=== PATIENT | female | born 1955 | race Caucasian/White ===

== ENCOUNTER → 2017-04-02 | Outpatient (CLI) | payer MEDICARE ==
[~2017-04-02] MED LIST: AMLO2.5T PO; BACL20TA PO; CYMB30CA PO; HYDR-3583 PO; HYDR25TA5 PO; HYDR50TA94 PO; LACT10SO PO; LEVO125T4 PO; MELO15TA20 PO; MONT10TA2 PO; RANI150T PO; TRAZ50TA12 PO
--- NOTE | 2017-04-02 13:46 | RADRPT ---
EXAM DATE/TIME: 04/02/2017 13:18 [place] COMPARISON: No previous studies available for comparison. INDICATIONS : Pre op cyst removal. Evaluate for pneumothorax, pneumonia, or communicable disease. MEDICAL HISTORY : None. SURGICAL HISTORY : Fusion, cervical. ENCOUNTER: Initial ACUITY: 1 day PAIN SCORE: 0/10 LOCATION: Bilateral chest FINDINGS: A single view of the chest demonstrates the lungs to be symmetrically aerated with minimal atelectati c changes in the left lingular region. Lungs are otherwise clear. The cardiomediastinal contours are unremarkable. Osseous structures are intact. Posterior transpedicular fixation of the upper dorsal spine. CONCLUSION: Minimal linear atelectatic changes in the left lower lobe. Lungs are otherwise clear. Bruno Fregoso MD on April 02, 2017 at 13:42 Board Certified Radiologist. This report was verified electronically.
[2017-04-02 14:15] LABS: BILIRUBIN, URINE NEG (NEG); BLOOD, URINE NEG (NEG); GLUCOSE,URINE NEG (NEG); KETONE, URINE NEG (NEG); NITRITE,URINE NEG (NEG); URINE LEUKOCYTE ESTERASE NEG (NEG)
[2017-04-02 14:15] LABS: HEMATOCRIT 45.7 % (35.0-46.0); HEMOGLOBIN 15.7 GM/DL (11.6-15.3); MEAN CELL VOLUME 88.5 FL (80.0-100.0); MEAN CORPUSCULAR HEMOGLOBIN 30.4 PG (27.0-34.0); MEAN CORPUSCULAR HGB CONC 34.4 % (32.0-36.0); MEAN PLATELET VOLUME 8.2 FL (7.0-11.0); PLATELET COUNT 218 TH/MM3 (150-450); RED BLOOD COUNT 5.17 MIL/MM3 (4.00-5.30); RED CELL DISTRIBUTION WIDTH 12.1 % (11.6-17.2)
[2017-04-02 14:30] LABS: CHLORIDE 97 MEQ/L (98-107); SODIUM (NA) 133 MEQ/L (136-145)
[2017-04-02 14:31] LABS: URINE COLOR STRAW (YELLW/STRAW)
[2017-04-02 14:32] LABS: SQUAMOUS EPITHELIAL CELL URINE 0-2 /hpf (0-5); WBC, URINE 0-2 /hpf (0-5)
[2017-04-02 14:34] LABS: CALCIUM 9.5 MG/DL (8.5-10.1)
[2017-04-02 14:35] LABS: ALBUMIN 3.8 GM/DL (3.4-5.0); BICARBONATE 28.9 MEQ/L (21.0-32.0); BLOOD UREA NITROGEN 8 MG/DL (7-18); GLUCOSE,RANDOM 91 MG/DL (74-106)
[2017-04-02 14:38] LABS: ALT (GPT) 54 U/L (10-53); AST (GOT) 53 U/L (15-37); CREATININE 0.76 MG/DL (0.50-1.00); GLOMERULAR FILTRATION RATE 78 ML/MIN (>89)
[2017-04-02 14:39] LABS: TOTAL BILIRUBIN ADULT 0.6 MG/DL (0.2-1.0); TOTAL PROTEIN 8.2 GM/DL (6.4-8.2)
[2017-04-02 14:41] LABS: ALKALINE PHOSPHATASE 71 U/L (45-117)
--- NOTE | 2017-04-03 18:33 | EKG ---
Date Performed: 04/02/2017 Time Performed: 13:31:40 PTAGE: 62 years EKG: Sinus rhythm PATTERN CONSISTENT WITH PULMONARY DISEASE LEFT ANTERIOR FASCICULAR BLOCK NONSPECIFIC T-WAVE ABNORMAL ITY ABNORMAL ECG NO PREVIOUS TRACING DOCTOR: Chidi Keller Interpretating Date/Time 04/03/2017 18:29:33
== END ==
LOC: PHPRE 12:47
PROVIDERS: ATTEND Obstetrics & Gynecology
DX: Z01.810 Encounter for preprocedural cardiovascular examination (principal); Z01.811 Encounter for preprocedural respiratory examination; Z01.812 Encounter for preprocedural laboratory examination; N39.3 Stress incontinence (female) (male); N76.4 Abscess of vulva; I10 Essential (primary) hypertension; R94.31 Abnormal electrocardiogram [ECG] [EKG]
CPT/HCPCS: 36415; 71045; 80053; 81001; 85027; 86850; 86900; 86901; 86920; 93005

== ENCOUNTER 2017-04-04 06:07 | Observation (INO) | payer MEDICARE ==
[~2017-04-04] VITALS: Ht 160 cm; Wt 101.2 kg
[2017-04-04] MEDS ORDERED: BUPIVACAINE HCL PF 0.25% 30 ML VIAL ONE ×2 (06:50→06:51)
[2017-04-04] MEDS ORDERED: ESTROGENS CONJUGATED VAG CREA 15 APPL/30 GM TUBE ONE (06:50)
[2017-04-04] MEDS ORDERED: VASOPRESSIN 20 UNITS/ML VIAL ONE (07:01)
[2017-04-04] MEDS ORDERED: SODIUM CHLORIDE 0.9% 20 ML VIAL ONE (07:01)
[2017-04-04] MEDS ORDERED: ceFAZolin INJ 1,000 MG VIAL ONE (07:16)
[2017-04-04] MEDS ORDERED: SODIUM CHLORIDE 0.9% INJ 100 ML ONE (07:18)
--- NOTE | 2017-04-04 10:19 | PD.OP ---
Operative Report Date of Surgery: Apr 04, 2017 Preoperative Diagnosis: Stress urinary incontinence Chronic vulvar abscesses x2 Postoperative Diagnosis: (1) ANDERSON (stress urinary incontinence, female) (2) Vulvar abscess Procedure: transobturator tape, midurethral sling Excision of vulvar abscesses x2 Anesthesia: [facility] ENG Surgeon: Trina Russell Coconut Boiler(s): Mina Webster Surgeon: n/a Operation and Findings: Indications: This patient presented for general exam, and to complain of chronic abscesses of the vulva. The largest and most painful is on the right labium majus and another at the left lateral aspect of the mons. The patient complains that those two places will abscess, come to a head and drain, then slowly heal before re-forming. Patient has tried I&D topical and systemic antibiotics, and stopped shaving, without any improvement over the past 2 years. Patient also has stress urinary incontinence, necessitating wearing protection for leakage at all times. The incontinence is demonstrable on exam. Findings: Patient had normal findings on cystoscopy after placement of tape. Ureteral reflux seen bilaterally. Procedure: After induction of general anesthesia, positioning in low stirrups and prep, a Ross catheter was used to drain the bladder. The urethra was palpated, a weighted speculum was placed in the vagina, and the submucosal plane over the urethral was injected with dilute vasopressin. A midline incision was made and the submucosal plane was developed laterally to the vaginal sulcus on each side. A stab incision was also made in the groins at the level of the urethral meatus. Then using the TOT needle device, the left obturator fascia was perforated, the needle passed close to the ischium and into the lateral vaginal sulcus anteriorly where I palpated it with my finger. Then it was brought to the midline incision submucosally and the sling tape was threaded into the eye, then pulled back out through the payal incision, carrying the tape with it. The tape was left in situ while the same needle was the passed through the contralateral groin incision, into the anterior vaginal sulcus, and to the midline incision over the urethra. Again the tape was threaded into the needle and extracted from the other side. Thus the tape was placed submucosally in the midurethra, and care was taken to avoid any twisting of the tape, placing lightly against the urethra, and making sure there was no unintentional vaginal perforation. Cystoscopy was then done to make sure there was no bladder perforation. Urine was seen to pass through each ureteral opening. The Ross was then re-connected. The vaginal incision was closed with interrupted 2-0 Vicryl sutures, closing horizontal to the axis of the urethra to minimize risk of vaginal erosion. Attention was then turned to the right labium majora and the site of chronic abscess. It was excised with an elliptical incision, taking care to include the entire full thickness of the skin. The epidermis was undermined with cautery and cautery was also used for hemostasis. A deep suture in the subcutaneous tissues closed the space, with 3-0 interrupted sutures to close. The same procedure was done at the mons abscess site. These incisions and the groins incisions were sealed with Dermabond. Ross catheter was re-placed, the vagina was packed with gauze lubricated with Premarin cream. The patient was washed, replaced supine, and then transferred to the recovery room awake and breathing on her own. Sponge, needle and instrument counts were correct. Trina Russell MD Apr 04, 2017 10:19
[2017-04-04] MEDS ORDERED: SODIUM CHLORIDE 0.9% FLUSH 10 ML FLUSH IV FLUSH PRN (10:30)
[2017-04-04] MEDS ORDERED: ZOLPIDEM TARTRATE 5 MG TAB PO PRN (10:30)
[2017-04-04] MEDS ORDERED: CHLORHEXIDINE GLUCONATE 2 % 1 PACK (2 CLOTHS) TOPICAL PRN (12:30)
[2017-04-04] MEDS ORDERED: LACTATED RINGER'S 1000 ML IV PRN (12:30)
[2017-04-04] MEDS ORDERED: INSULIN HUMAN REGULAR 1,000 UNITS/10 ML VIAL SQ PRN (12:30)
[2017-04-04] MEDS ORDERED: POVIDONE IODINE 5% (ANTISEPSIS KIT) 4 APPLICATIONS EACH NARE PRN (12:30)
[2017-04-04] MEDS ORDERED: METOPROLOL TARTRATE 25 MG TAB PO PRN (12:30)
[2017-04-04] MEDS ORDERED: SODIUM CHLORID 0.9% 500 ML IV PRN (12:30)
[2017-04-04] MEDS ORDERED: ceFAZolin 1,000 MG/NS 100 ML IV SCH ×2 (12:45)
[2017-04-04 13:00] VITALS: BP 137/66; PULSE 90; RESP 20; TEMP 98.5; O2SAT 92
[2017-04-04] MEDS ORDERED: ACETAMINOPHEN/HYDROcodone 325 MG/10 MG TAB PO PRN (13:15)
[2017-04-04] MEDS: DOCUSATE SODIUM 100 MG CAP PO SCH ×2 (13:52→20:31)
[2017-04-04] MEDS: KETOROLAC TROMETHAMINE 30 MG/ML (IVP) VIAL IVP SCH ×3 (13:52→23:27)
[2017-04-04] MEDS: LACTATED RINGER'S 1000 ML INJ 1,000 ML IV SCH ×2 (13:55→23:27)
[2017-04-04 15:50] VITALS: BP 116/59; PULSE 85; RESP 20; TEMP 97.5; O2SAT 94
[2017-04-04 20:27] VITALS: BP 126/69; PULSE 89; RESP 16; TEMP 97.7; O2SAT 94
[2017-04-04] MEDS: LACTULOSE SYRUP 20 GM/30 ML CUP PO SCH (20:31)
[2017-04-04] MEDS: hydrOXYzine HCL 50 MG TAB PO SCH (20:31)
[2017-04-04] MEDS: SODIUM CHLORIDE 0.9% FLUSH 10 ML FLUSH IV FLUSH SCH (20:32)
[2017-04-04] MEDS: BACLOFEN 20 MG TAB PO SCH (20:32)
[2017-04-04] MEDS ORDERED: MONTELUKAST SODIUM 10 MG TAB PO SCH (21:00)
[2017-04-04] MEDS ORDERED: traZODone HCL 50 MG TAB PO SCH (21:00)
[2017-04-05 01:29] VITALS: BP 119/61; PULSE 81; RESP 16; TEMP 98.5; O2SAT 95
[2017-04-05] MEDS: KETOROLAC TROMETHAMINE 30 MG/ML (IVP) VIAL IVP SCH (05:15)
[2017-04-05] MEDS ORDERED: LEVOTHYROXINE SODIUM 125 MCG TAB PO SCH (06:00)
[2017-04-05 07:50] VITALS: BP 128/61; PULSE 84; RESP 20; TEMP 97.2; O2SAT 95
[2017-04-05] MEDS ORDERED: amLODIPine BESYLATE 5 MG TAB PO SCH (09:00)
[2017-04-05] MEDS: SODIUM CHLORIDE 0.9% FLUSH 10 ML FLUSH IV FLUSH SCH (09:00)
[2017-04-05] MEDS ORDERED: DULoxetine HCl DR 30 MG CAP PO SCH (09:00)
[2017-04-05] MEDS ORDERED: HYDROCHLOROTHIAZIDE 25 MG TAB PO SCH (09:00)
[2017-04-05] MEDS ORDERED: MELOXICAM 15 MG TAB PO SCH (09:00)
[2017-04-05] MEDS: LACTULOSE SYRUP 20 GM/30 ML CUP PO SCH (09:00)
[2017-04-05] MEDS ORDERED: FAMOTIDINE 20 MG TAB PO SCH (09:00)
[2017-04-05] MEDS: hydrOXYzine HCL 50 MG TAB PO SCH (10:53)
[2017-04-05] MEDS: DOCUSATE SODIUM 100 MG CAP PO SCH (10:54)
[2017-04-05] MEDS: BACLOFEN 20 MG TAB PO SCH (10:54)
[2017-04-05 11:50] VITALS: BP 135/61; PULSE 79; RESP 20; TEMP 97.2; O2SAT 97
[2017-04-05] MEDS ORDERED: PROPOFOL 200 MG/20 ML AMP IV ONE (12:00)
[2017-04-05] MEDS ORDERED: PHENYLEPH/NS 1000 MCG/10 ML SYR IV ONE (12:00)
[2017-04-05] MEDS ORDERED: GLYCOPYRROLATE 1 MG/5 ML SYRINGE IV PUSH ONE (12:00)
[2017-04-05] MEDS ORDERED: NEOSTIGMINE 5 MG/5 ML SYRINGE IV PUSH ONE (12:00)
[2017-04-05] MEDS ORDERED: LIDOCAINE HCL 1% PF 5 ML SYRINGE OTHER ONE (12:00)
[2017-04-05] MEDS ORDERED: KETOROLAC TROMETHAMINE 30 MG/ML (IVP) VIAL IV PUSH ONE (12:00)
[2017-04-05] MEDS ORDERED: DEXAMETHASONE SOD PHOS 4 MG/ML VIAL IV ONE (12:00)
[2017-04-05] MEDS ORDERED: ONDANSETRON HCL 4 MG/2 ML VIAL IV PUSH ONE (12:00)
[2017-04-05] MEDS ORDERED: ROCURONIUM INJ 50 MG/5 ML SYRINGE IV PUSH ONE (12:00)
--- NOTE | 2017-04-05 13:36 | HHI.DS ---
Discharge Summary Admission Date Apr 04, 2017 at 10:26 Discharge Date: Apr 05, 2017 Admitting Diagnosis Stress urinary incontinence chronic vulvar abscess x2 (1) ANDERSON (stress urinary incontinence, female) Diagnosis: Principal ICD Codes: N39.3 - Stress incontinence (female) (male) (2) Vulvar abscess Diagnosis: Secondary ICD Codes: N76.4 - Abscess of vulva Procedures transobturator placement of a midurethral sling Excision of chronic abscesses x2 Brief History This 62 y/o patient presented with a complaint of two discrete areas on her vulva that chronically abscess. She wanted those areas excised if possible. The patient also had demonstrable stress incontinence on coughing with a hypermobile urethra. After explaining options for treatment, she requested a midurethral sling be placed. PE at Discharge Patient has required no pain medication over night. Her vital signs are stable and she is tolerating a regular diet. PVR by bladder scan shows her post-void residual to be 90 cc. Pt Condition on Discharge: Good Discharge Disposition: Discharge Home Discharge Instructions DIET: Follow Instructions for: As Tolerated, No Restrictions Activities you can perform: Pelvic Rest Activities to avoid: Lifting/Bending, Weight Bearing, Bathing, Sexual Activity Additional Information Patient has follow up appt scheduled for my office in one week. She has chronic pain medications and can use these for post-operative pain. Trina Russell MD Apr 05, 2017 13:36
== END 2017-04-05 14:15 | disposition home or self-care (01) ==
LOC: PHSDC 06:07 → HSDI 10:26 → PH3A 12:26
PROVIDERS: ADMIT Obstetrics & Gynecology; ATTEND Obstetrics & Gynecology
DX: N39.3 Stress incontinence (female) (male) (principal); N36.41 Hypermobility of urethra; N90.7 Vulvar cyst; L90.5 Scar conditions and fibrosis of skin; I10 Essential (primary) hypertension
CPT/HCPCS: 00860; 11400; 11424; 13132; 57288; 88305; 96361; 96374; 96376; C1771; G0378; J0690; J1100; J1885; J2370; J2405; J2710; J7120